=== PATIENT | male | born 1980 | race Caucasian/White ===

== ENCOUNTER 2016-12-05 14:56 | Emergency (ER) | payer MEDICAID, OTHER ==
[2016-12-05 15:13] VITALS: O2SAT 97
--- NOTE | 2016-12-05 15:42 | C.PDOC ---
History Of Present Illness 36 yr old male with PMHx of schizophrenia (non compliant) presents to the ER for evaluation of LLQ pain and blood with bowel movement last night. Patient states he noticed bright red blood upon wiping. Patient also complains of right lower. Denies fever, chills, nausea, vomiting, constipation, dysuria, incontinence, weakness or numbness. Time Seen by Provider: 12/05/16 15:17 Chief Complaint (Nursing): GI Problem History Per: Patient History/Exam Limitations: no limitations Onset/Duration Of Symptoms: Days Past Medical History Reviewed: Historical Data, Nursing Documentation, Vital Signs Vital Signs: Last Vital Signs Temp 98.6 F 12/05/16 17:01 Pulse 73 12/05/16 17:01 Resp 16 12/05/16 17:01 BP 113/76 12/05/16 17:01 Pulse Ox 97 12/05/16 17:02 - Medical History PMH: Schizophrenia Family History: States: No Known Family Hx - Social History Hx Alcohol Use: No Hx Substance Use: No - Immunization History Hx Tetanus Toxoid Vaccination: No Hx Influenza Vaccination: No Hx Pneumococcal Vaccination: No Review Of Systems Except As Marked, All Systems Reviewed And Found Negative. Constitutional: Negative for: Fever, Chills Gastrointestinal: Positive for: Abdominal Pain (LLQ). Negative for: Nausea, Vomiting, Constipation Genitourinary: Negative for: Dysuria, Incontinence Musculoskeletal: Positive for: Back Pain (Right lower ) Neurological: Negative for: Weakness, Numbness Physical Exam - Physical Exam Appears: Non-toxic, No Acute Distress Skin: Warm, Dry, No Rash Head: Atraumatic, Normacephalic Eye(s): bilateral: Normal Inspection, PERRL, EOMI Oral Mucosa: Moist Chest: Symmetrical, No Tenderness Cardiovascular: Rhythm Regular, No Murmur Respiratory: Normal Breath Sounds, No Rales, No Rhonchi, No Wheezing Gastrointestinal/Abdominal: Bowel Sounds (Present), Soft, Tenderness (LLQ), No Guarding, No Rebound Rectal: Rectal Tone (Normal), No Hemorrhoids, No Mass Extremity: Normal ROM, No Swelling Pulses: Left Radial: Normal, Right Radial: Normal, Left Dorsalis Pedis: Normal, Right Dorsalis Pedis: Normal Neurological/Psych: Oriented x3, Normal Speech, Normal Cranial Nerves, Normal Motor, Normal Sensation, Normal Reflexes Gait: Steady ED Course And Treatment - Laboratory Results Result Diagrams: 12/05/16 16:01 12/05/16 16:01 O2 Sat by Pulse Oximetry: 97 (RA) Pulse Ox Interpretation: Normal Medical Decision Making Medical Decision Making: DDx: Diverticulitis, colitis PLAN: * CBC * CMP * Urinalysis * Toradol IVP NOTE: * Labs were found to be normal, including H&H. * Patient to be treated empirically for diverticulitis. * Patient is being treated with Cipro and Flagyl. * Discussed diagnoses with patient, advised some dietary suggestion. Patient understands the plan. Disposition - Disposition Disposition: HOME/ ROUTINE Disposition Time: 20:19 Condition: GOOD Prescriptions: Acetaminophen/Hydrocodone Bi [Vicodin 300 mg-5 mg] 1 tab PO Q4 PRN #12 tab PRN Reason: Pain, Mild (1-3) Ciprofloxacin HCl [Cipro] 500 mg PO BID #20 tablet metroNIDAZOLE [Flagyl] 500 mg PO TID #30 tab Instructions: Diverticulitis (DC) Forms: [email or web address] (Spanish) - Clinical Impression Clinical Impression: Diverticulitis large intestine - Scribe Statement The provider has reviewed the documentation as recorded by the Bryantibjulio cesar Hayes Provider Attestation: All medical record entries made by the Lis were at my direction and personally dictated by me. I have reviewed the chart and agree that the record accurately reflects my personal performance of the history, physical exam, medical decision making, and the department course for this patient. I have also personally directed, reviewed, and agree with the discharge instructions and disposition.
[2016-12-05 16:05] LABS: BASO % 0.3 % (0.0-2.0); EOS # 0.3 K/uL (0.0-0.7); EOS % 2.6 % (0.0-4.0); HEMATOCRIT 43.2 % (35.0-51.0); LYMPH # 3.5 K/uL (1.0-4.3); LYMPH % 34.9 % (20.0-40.0); MEAN CELL VOLUME 84.7 fL (80.0-94.0); MEAN CORPUSCULAR HEMOGLOBIN 29.4 pg (27.0-31.0); MEAN CORPUSCULAR HGB CONC 34.7 g/dL (33.0-37.0); MEAN PLATELET VOLUME 8.6 fL (7.2-11.7); MONO # 0.8 K/uL (0.0-0.8); MONO % 7.9 % (0.0-10.0); RED CELL DISTRIBUTION WIDTH 13.3 % (11.5-14.5)
[2016-12-05 16:12] LABS: CHLORIDE 98 mmol/L (98-107); SODIUM 135 mmol/L (132-148)
[2016-12-05 16:14] LABS: ALB/GLOB RATIO 1.6 (1.0-2.1); ALKALINE PHOSPHATASE 66 U/L (38-126); AST/SGOT 42 U/L (17-59); BILIRUBIN,TOTAL 1.3 mg/dL (0.2-1.3); BLOOD UREA NITROGEN 15 mg/dL (9-20); CARBON DIOXIDE 27 mmol/L (22-30); GFR AFRICAN-AMERICAN > 60; TOTAL PROTEIN 6.9 g/dL (6.3-8.3)
[2016-12-05 16:15] LABS: ALT/SGPT 68 U/L (21-72); GLUCOSE,RANDOM 94 mg/dL (75-110)
[2016-12-05 16:17] LABS: RBC URINE 1 /hpf (0-3); URINE BACTERIA OCC (<OCC); URINE BILIRUBIN NEGATIVE (NEGATIVE); URINE BLOOD NEGATIVE (NEGATIVE); URINE COLOR Yellow (YELLOW); URINE GLUCOSE (UA) NORMAL (Normal); URINE KETONE NEGATIVE (NEGATIVE); URINE LEUKOCYTE ESTERASE NEG Leu/uL (Negative); URINE PROTEIN NEGATIVE (NEGATIVE); WBC URINE 1 /hpf (0-5)
[2016-12-05 17:03] VITALS: BP 113/76; PULSE 73; RESP 16; TEMP 98.6
== END 2016-12-05 17:22 | disposition home or self-care (01) ==
LOC: C.ER 14:56
DX: K57.32 Diverticulitis of large intestine without perforation or abscess without bleeding (principal)
CPT/HCPCS: 80053; 81001; 83690; 85025; 96374; 99283; J1885